=== PATIENT | male | born 1970 | race Caucasian/White ===

== ENCOUNTER 2020-06-08 11:02 | Emergency (ER) | payer MEDICARE, SELFPAY ==
--- NOTE | 2020-06-08 11:25 | ED.EAR ---
HPI - Ear Problem General Chief complaint: Ear Stated complaint: both ears clogged Related Data Home Medications Medication Instructions Recorded Confirmed No Home Medications 06/08/20 06/08/20 Allergies Allergy/AdvReac Type Severity Reaction Status Date / Time No Known Allergies Allergy Verified 06/08/20 11:34 Review of Systems Review of Systems: Narrative: CONSTITUTIONAL: Denies fever, chills, or sweats. EYES: Denies visual changes, redness, or discharge. ENT: Bilateral otalgia and decreased hearing CARDIOVASCULAR: Denies chest pain, palpitations, or edema. RESPIRATORY: Denies cough or dyspnea. GASTROINTESTINAL: Denies abdominal pain, nausea, vomiting, or diarrhea. GENITOURINARY: Denies dysuria or hematuria. SKIN: Denies rash or itching. MUSCULOSKELETAL: Denies back pain, joint pain, or myalgia. NEUROLOGIC: Denies headache, numbness, dizziness, or weakness. PSYCHIATRIC: Denies anxiety or depression. [facility] Past Medical History Medical History Anxiety Asthma GI bleed Hypercholesterolemia Surgical History Surgical History Spinal surgery in prior 3 months Family History Family History (Updated 06/08/20 @ 11:58 by CORINA Joe) Other Hypertension Social History Social History (Updated 06/08/20 @ 11:27 by CORINA Joe) Smoking status: Current every day smoker Tobacco type: e-cigarettes/vaping Alcohol intake: current Substance use: never Comments At the time of signature, I have reviewed and agree with nursing past medical, surgical, social, and family history unless otherwise noted. Please see nursing chart for further information. There is no relevant family history pertinent to the presenting complaint. Exam Narrative: Exam Narrative: GENERAL: Well-appearing, well-nourished, and in no acute distress. HEAD: Normocephalic, atraumatic. EYES: EOMI. No redness or drainage. Conjunctiva are normal. ENT: Mucous membranes pink and moist. Nares clear. Cerumen impaction bilateral ears, TMs not visualized CHEST: No respiratory distress. HEART: Regular rate and rhythm. EXTREMITIES: Normal range of motion. SKIN: Warm, dry, no rash. NEURO: No focal deficits. Alert and oriented x3. Gait steady. PSYCH: Normal affect. No signs of depression or anxiety. Course Vital Signs Vital signs: Vital Signs Temperature 37.5 C 06/08/20 11:28 Pulse Rate 99 06/08/20 11:28 Respiratory Rate 18 06/08/20 11:28 Blood Pressure 143/91 H 06/08/20 11:28 Pulse Oximetry 98 06/08/20 11:28 Temperature 37.5 C 06/08/20 11:28 Pulse Rate 99 06/08/20 11:28 Respiratory Rate 18 06/08/20 11:28 Blood Pressure 143/91 H 06/08/20 11:28 Pulse Oximetry 98 06/08/20 11:28 Procedures Ear Wax Removal Both Ears: Ear Wax Removal Date: 06/08/20 Ear Wax Removal Time: 12:00 Cerumenolytic Used: other (peroxide and water) Results: Re-examined: cerumen removed completely TM Examination: TM(s) intact, normal appearance Ear Canal Exam: atraumatic Patient Tolerated Procedure: well Complications: no problems Technique: ear canal irrigated and ear canal curetted Additional Comments: TMs normal bilaterally, visualized after cerumen cleared Medical Decision Making MDM Narrative Medical decision making narrative: Patient had bilateral cerumen impaction, it was irrigated and curetted with a large amount of cerumen removed by laterally, TMs normal after procedure. Patient reports increased hearing in bilateral ears. Discussed ways for patient to decrease cerumen impaction. Patient is stable for discharge home with outpatient follow-up as needed. Differential Diagnosis Differential Diagnosis: Cerumen impaction, otitis media, otitis externa, foreign body Medical Records Medical records reviewed: Yes I reviewed the p
[2020-06-08 11:28] VITALS: BP 143/91; PULSE 99; RESP 18; TEMP 37.5; O2SAT 98
--- NOTE | 2020-06-08 11:50 | PC.NURSE ---
Ears irrigated with water and hydrogen peroxide per provider. Large amount of wax irrigated from right ear. Some wax irrigated from Lt ear. Pt tolerated.
== END 2020-06-08 12:15 | disposition home or self-care (01) ==
PROVIDERS: Emergency Provider Nurse Practitioner
DX: H61.23 Impacted cerumen, bilateral (principal); F17.210 Nicotine dependence, cigarettes, uncomplicated; F41.9 Anxiety disorder, unspecified; E78.00 Pure hypercholesterolemia, unspecified
CPT/HCPCS: G0268; 99212; A9270; G0463

== ENCOUNTER 2022-12-20 12:59 | Emergency (ER) | payer MEDICARE, SELFPAY ==
--- NOTE | 2022-12-20 13:05 | ED.GENADULT ---
HPI - General Adult General Chief complaint: Upper Respiratory Infection Stated complaint: Wheezing/coughing/chest pain Source: patient and RN notes reviewed Mode of arrival: ambulatory Limitations: no limitations History of Present Illness HPI narrative: patient is a 52-year-old male who presents to the [facility] with complaints of chest tightness that has been present for past 3 days. States that the chest tightness is on the left side of his chest. It is nonradiating. He also endorses shortness of breath, recent cough, and wheezing. He reports a frequent nonproductive cough. States that he has had frequent wheezing. He reports history of asthma. States that he has been using his albuterol inhaler with some relief. Last used his inhaler last night. Patient also states that he has been experiencing increased stress and anxiety recently. 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 His respirations are unlabored at this time. He does not appear in any acute distress. He denies diaphoresis, nausea, vomiting. Denies recent illness or fever. Related Data Allergies Allergy/AdvReac Type Severity Reaction Status Date / Time No Known Allergies Allergy Verified 12/20/22 13:20 Review of Systems Review of Systems: CONSTITUTIONAL: Denies fever, chills, or sweats. EYES: Denies visual changes, redness, or discharge. ENT: Denies otalgia and sore throat CARDIOVASCULAR: Reports chest pain, but denies palpitations or edema. RESPIRATORY: Reports cough and dyspnea. GASTROINTESTINAL: Denies abdominal pain, nausea, vomiting, or diarrhea. GENITOURINARY: Denies dysuria or hematuria. SKIN: Denies rash or itching. MUSCULOSKELETAL: Denies back pain, joint pain, or myalgia. NEUROLOGIC: Denies headache, numbness, or weakness. Pertinent positives per HPI. [facility] Past Medical History Medical History Anxiety Asthma GI bleed Hypercholesterolemia Surgical History Surgical History Spinal surgery in prior 3 months Family History Family History Other Hypertension Social History Social History (Reviewed 12/20/22 @ 13:05 by ROGER Dominguez Smoking status: Current every day smoker Tobacco type: e-cigarettes/vaping Alcohol intake: current Substance use: never Comments At the time of my signature, I reviewed and agree with the nursing past medical, surgical, social, and family history. There is no relevant family history pertinent to the patient complaint. Exam Narrative: GENERAL: This is a well-nourished, well-developed patient, in no apparent distress. HEAD: normocephalic, atraumatic. EYES: Sclera clear/white. Vision is grossly intact. EARS: External ears normal. Hearing grossly intact. NOSE: External nose normal with no obvious nasal discharge, nares without redness, no rhinorrhea. THROAT: Mucous membranes moist, posterior pharynx clear. NECK: Neck supple, non-tender without lymphadenopathy, masses or thyromegaly. CARDIOVASCULAR: Regular rate and rhythm without murmurs, gallops, or rubs. RESPIRATORY: Clear to auscultation. Breath sounds equal bilaterally. No wheezes, rales, or rhonchi. GASTROINTESTINAL: Abdomen soft, non-tender, nondistended. Bowel sounds are active. No hepato-splenomegaly, or palpable masses. No guarding. SKIN: warm, intact with no suspicious lesions or rash, good texture and turgor. NEURO: awake, alert, and oriented to person, place and time. There were no obvious focal neurologic abnormalities. Course Course Level of Care: Express Care Visit Vital Signs Vital signs: Vital Signs Temperature 97.7 F 12/20/22 13:13 Pulse Rate 69 12/20/22 13:13 Respiratory Rate 20 12/20/22 13:13 Blood Pressure 144/92 H 12/20/22 13:13 Pulse Oximet
[2022-12-20 13:13] VITALS: BP 144/92; PULSE 69; RESP 20; TEMP 36.5; O2SAT 98
--- NOTE | 2022-12-20 13:19 | ECG_ITS ---
Measurements Intervals [place] Rate: 70 P: 56 ME: 159 QRS: -12 QRSD: 100 T: 48 QT: 387 QTc: 418 Interpretive Statements SINUS RHYTHM NORMAL ECG NO PREVIOUS ECG AVAILABLE FOR COMPARISON Electronically Signed On 12-21-2022 6:56:29 CDT by Huber Donnelly D.O.
== END 2022-12-20 13:41 | disposition left against medical advice (07) ==
PROVIDERS: Emergency Provider Nurse Practitioner
DX: F41.9 Anxiety disorder, unspecified (principal); R07.9 Chest pain, unspecified; J45.21 Mild intermittent asthma with (acute) exacerbation; F17.290 Nicotine dependence, other tobacco product, uncomplicated; E78.00 Pure hypercholesterolemia, unspecified
CPT/HCPCS: 93005; 99213; G0463